=== PATIENT | male | born 1970 | race Two or more races ===

== ENCOUNTER → 2018-02-14 | Outpatient (CLI) | payer OTHER ==
[~2018-02-14] MED LIST: NO MEDS PER PT
== END | disposition home or self-care (01) ==
LOC: RAD 14:29
PROVIDERS: ATTEND Family Medicine
DX: R10.9 Unspecified abdominal pain (principal)
CPT/HCPCS: 76700

== ENCOUNTER → 2018-03-18 | Outpatient (CLI) | payer OTHER | END | disposition home or self-care (01) | LOC: RAD 09:34 | PROVIDERS: ATTEND Family Medicine | DX: R10.9 Unspecified abdominal pain (principal) | CPT/HCPCS: 78227; A9537 ==

== ENCOUNTER → 2018-05-10 | Outpatient (CLI) | payer OTHER ==
[~2018-05-10] MED LIST changes: +CHOL500045 PO; +DEXAMETHASONE 4 MG/ML, 1ML ONE; +ESOM40CA PO; +FENTANYL PF 100 MCG/2ML ONE; +FISH OIL PO; +GREEN TEA EXTRACT PO; +KETOROLAC 30 MG/1 ML ONE; +MIDAZOLAM 1 MG/ML, 2ML ONE; +MULT-658 PO; +OMNIPAQUE 350 MG/ML, 100ML BOTTLE ONE; +ONDANSETRON 2MG/ML, 2ML ONE; +PROPOFOL 10 MG/ML, 20ML ONE; +SUCCINYLCHOLINE 20 MG/ML, 10ML ONE; +VITAMIN C PO
== END | disposition home or self-care (01) ==
LOC: RAD 14:22
PROVIDERS: ATTEND Internal Medicine
DX: I81 Portal vein thrombosis (principal); K25.4 Chronic or unspecified gastric ulcer with hemorrhage
CPT/HCPCS: 74177; Q9967

== ENCOUNTER 2018-05-14 10:08 | Day surgery (SDC) | payer OTHER ==
[~2018-05-14] VITALS: Ht 170.2 cm; Wt 83.1 kg
[~2018-05-14 10:08] MED LIST changes: -CHOL500045 PO; -DEXAMETHASONE 4 MG/ML, 1ML ONE; -ESOM40CA PO; -FENTANYL PF 100 MCG/2ML ONE; -FISH OIL PO; -GREEN TEA EXTRACT PO; -KETOROLAC 30 MG/1 ML ONE; -MIDAZOLAM 1 MG/ML, 2ML ONE; -MULT-658 PO; -OMNIPAQUE 350 MG/ML, 100ML BOTTLE ONE; -ONDANSETRON 2MG/ML, 2ML ONE; -PROPOFOL 10 MG/ML, 20ML ONE; -SUCCINYLCHOLINE 20 MG/ML, 10ML ONE; -VITAMIN C PO
[2018-05-14] MEDS ORDERED: LACTATED RINGERS 1,000 ML IV SCH (10:35)
[2018-05-14] MEDS ORDERED: ESOM40CA PO (10:39)
[2018-05-14] MEDS ORDERED: CHOL500045 PO (10:39)
[2018-05-14] MEDS ORDERED: GREEN TEA EXTRACT PO (10:39)
[2018-05-14] MEDS ORDERED: FISH OIL PO (10:39)
[2018-05-14] MEDS ORDERED: MULT-658 PO (10:39)
[2018-05-14] MEDS ORDERED: VITAMIN C PO (10:39)
[2018-05-14 10:43] VITALS: BP 132/87
[2018-05-14] MEDS ORDERED: PHENYLEPHRINE 10 MG/ML ONE (11:16)
[2018-05-14] MEDS ORDERED: KETOROLAC 30 MG/1 ML ONE (11:16)
[2018-05-14] MEDS ORDERED: SUCCINYLCHOLINE 20 MG/ML, 10ML ONE (11:16)
[2018-05-14] MEDS ORDERED: DEXAMETHASONE 4 MG/ML, 1ML ONE (11:16)
[2018-05-14] MEDS ORDERED: ONDANSETRON 2MG/ML, 2ML ONE (11:16)
[2018-05-14] MEDS ORDERED: LORazepam 2 MG/ML, 1ML IVPush PRN (11:30)
[2018-05-14] MEDS ORDERED: ACETAMINOPHEN 325 MG TABLET PO PRN (11:30)
[2018-05-14] MEDS ORDERED: OXYcodone 5 MG/5 ML ORAL.SOL UDC PO PRN (11:30)
[2018-05-14] MEDS ORDERED: HALOPERIDOL 5 MG/ML IV PRN (11:30)
[2018-05-14] MEDS ORDERED: HYDROmorphone 2 MG/ML, 1ML IVPush PRN (11:30)
[2018-05-14] MEDS ORDERED: hydrALAzine 20 MG/ML, 1ML IV PRN (11:30)
[2018-05-14] MEDS ORDERED: LABETALOL 5MG/ML, 20ML IV PRN (11:30)
[2018-05-14] MEDS ORDERED: PROMETHAZINE 25 MG/ML, 1ML IV PRN (11:30)
[2018-05-14] MEDS ORDERED: MEPERIDINE/PF 25MG/0.5ML IVPush PRN (11:30)
[2018-05-14] MEDS ORDERED: FENTANYL PF 100 MCG/2ML IV PRN (11:30)
== END 2018-05-14 13:40 | disposition home or self-care (01) ==
LOC: OUT 10:08
PROVIDERS: ATTEND Internal Medicine
DX: C16.9 Malignant neoplasm of stomach, unspecified (principal); R59.1 Generalized enlarged lymph nodes; K21.9 Gastro-esophageal reflux disease without esophagitis; Z98.890 Other specified postprocedural states; Z86.19 Personal history of other infectious and parasitic diseases
CPT/HCPCS: 43238; 88172; 88173; 88177; 88305; J0330; J1100; J1885; J2250; J2370; J2405; J2704; J3010

== ENCOUNTER → 2018-05-30 | Outpatient (CLI) | payer OTHER ==
[~2018-05-30] MED LIST changes: +CHOL500045 PO; +ESOM40CA PO; +FISH OIL PO; +GREEN TEA EXTRACT PO; +MULT-658 PO; +VITAMIN C PO
== END | disposition home or self-care (01) ==
LOC: PETCFH 07:43
PROVIDERS: ATTEND Internal Medicine
DX: C16.9 Malignant neoplasm of stomach, unspecified (principal); R60.0 Localized edema
CPT/HCPCS: 78815; A9552

== ENCOUNTER 2018-06-19 11:58 | Day surgery (SDC) | payer OTHER ==
[~2018-06-19] VITALS: Ht 170.2 cm; Wt 82.4 kg
[2018-06-19 12:38] VITALS: BP 121/82
[2018-06-19] MEDS ORDERED: CEFAZOLIN PMX 1GM/50ML 50 ML ONE (12:46)
[2018-06-19] MEDS ORDERED: SODIUM CHLORIDE 0.9% 1,000 ML IV SCH (13:00)
[2018-06-19] MEDS ORDERED: CEFAZOLIN 1,000 MG in SODIUM CHLORIDE 0.9% 50 ML IV SCH (13:00)
[2018-06-19] MEDS ORDERED: CEFAZOLIN PMX 1GM/50ML 50 ML IV ONE (13:30)
[2018-06-19] MEDS ORDERED: NALOXONE 1 MG/ML, 2ML ONE (14:04)
[2018-06-19] MEDS ORDERED: FENTANYL PF 100 MCG/2ML ONE ×2 (14:04)
[2018-06-19] MEDS ORDERED: FLUMAZENIL 0.1 MG/1 ML, 5ML ONE (14:04)
[2018-06-19] MEDS ORDERED: MIDAZOLAM 1 MG/ML, 5ML ONE (14:04)
[2018-06-19] MEDS ORDERED: LIDOCAINE-MPF 1%, 5ML ONE (14:12)
== END 2018-06-19 16:30 | disposition home or self-care (01) ==
LOC: RAD 11:58 → OUT 16:30
PROVIDERS: ATTEND Internal Medicine Hematology & Oncology
DX: Z45.2 Encounter for adjustment and management of vascular access device (principal); C16.9 Malignant neoplasm of stomach, unspecified; Z98.890 Other specified postprocedural states
CPT/HCPCS: 36561; 76937; 77001; 99156; 99157; C1788; C1894; J0690; J1642; J2250; J3010; J7030; J2310

== ENCOUNTER → 2018-08-12 | Outpatient (CLI) | payer OTHER ==
[~2018-08-12] MED LIST changes: +OMNIPAQUE 350 MG/ML, 100ML BOTTLE ONE
== END | disposition home or self-care (01) ==
LOC: RAD 13:19
PROVIDERS: ATTEND Internal Medicine Hematology & Oncology
DX: C16.9 Malignant neoplasm of stomach, unspecified (principal)
CPT/HCPCS: 71260; 74160; Q9967

== ENCOUNTER → 2018-09-17 | Outpatient (CLI) | payer OTHER ==
[~2018-09-17] MED LIST changes: +NONE PER PT; -OMNIPAQUE 350 MG/ML, 100ML BOTTLE ONE
[2018-09-17 13:54] LABS: BASOPHILS # (AUTO) 0.02 x10^3/uL (0-0.1); BASOPHILS % (AUTO) 1 % (0-1); EOSINOPHILS # (AUTO) 0.15 x10^3/uL (0-0.4); EOSINOPHILS % (AUTO) 4 % (1-7); LYMPHOCYTES # (AUTO) 1.52 x10^3/uL (1-3.4); LYMPHOCYTES % (AUTO) 41 % (22-44); MD NO; MEAN CORPUSCULAR HEMOGLOBIN 28.2 pg (27.5-34.5); MEAN CORPUSCULAR HGB CONC 33.2 g/dL (33.2-36.2); MEAN CORPUSCULAR VOLUME 85.1 fL (81-97); MEAN PLATELET VOLUME 8.4 fL (7.4-10.4); MONOCYTES # (AUTO) 0.27 x10^3/uL (0.2-0.8); MONOCYTES % (AUTO) 7 % (2-9); NEUTROPHILS # (AUTO) 1.79 x10^3/uL (1.8-6.8); NEUTROPHILS % (AUTO) 48 % (42-75); PLATELET COUNT 232 x10^3/uL (130-400); RED BLOOD COUNT 4.51 x10^6/uL (4.38-5.82); RED CELL DISTRIBUTION WIDTH 17.8 % (9.4-14.8)
[2018-09-17 14:05] LABS: ALANINE AMINOTRANSFERASE 33 U/L (12-78); ALBUMIN 3.7 g/dL (3.4-5.0); ANION GAP 6 mmol/L (5-15); CALCIUM 8.4 mg/dL (8.5-10.1); CHLORIDE 107 mmol/L (98-107); CREATININE 1.03 mg/dL (0.7-1.3)
[2018-09-17 14:07] LABS: ALKALINE PHOSPHATASE 47 U/L (45-117); BILIRUBIN,TOTAL 0.4 mg/dL (0.2-1.0)
== END | disposition home or self-care (01) ==
LOC: STAR 12:58
PROVIDERS: ATTEND Thoracic Surgery (Cardiothoracic Vascular Surgery)
DX: Z01.818 Encounter for other preprocedural examination (principal)
CPT/HCPCS: 36415; 80053; 85025; 93005

== ENCOUNTER 2018-09-25 05:58 | Inpatient (IN) | payer OTHER ==
[~2018-09-25] VITALS: Ht 170.2 cm; Wt 89.0 kg
[2018-09-25] MEDS ORDERED: LACTATED RINGERS 1,000 ML IV SCH (06:39)
[2018-09-25] MEDS ORDERED: OxyconTIN ER 10 MG TAB.ER ONE (07:08)
[2018-09-25] MEDS ORDERED: SCOPOLAMINE PATCH, 1.5MG PATCH.TD72 TD ONE ×2 (07:08→10:00)
[2018-09-25] MEDS ORDERED: GABAPENTIN 300 MG CAPSULE ONE (07:08)
[2018-09-25] MEDS ORDERED: BUPIVACAINE/EPI 0.5% 1:200K ONE (07:12)
[2018-09-25] MEDS ORDERED: MIDAZOLAM 1 MG/ML, 2ML ONE ×2 (07:19→07:30)
[2018-09-25] MEDS ORDERED: ROCURONIUM 10MG/ML,5ML ONE (07:20)
[2018-09-25] MEDS ORDERED: FENTANYL PF 250 MCG/5ML ONE (07:20)
[2018-09-25] MEDS ORDERED: PHENYLEPHRINE 10 MG/ML ONE (07:22)
[2018-09-25] MEDS ORDERED: CEFOTETAN 2 GM ONE (07:32)
[2018-09-25] MEDS ORDERED: MEPERIDINE/PF 100 MG/ML ONE (08:20)
[2018-09-25] MEDS ORDERED: HALOPERIDOL 5 MG/ML IV PRN (08:30)
[2018-09-25] MEDS ORDERED: FENTANYL PF 100 MCG/2ML IV PRN (08:30)
[2018-09-25] MEDS ORDERED: DIAZEPAM 5 MG/ML, 2ML IVPush PRN (08:30)
[2018-09-25] MEDS ORDERED: MEPERIDINE/PF 25MG/0.5ML IVPush PRN (08:30)
[2018-09-25] MEDS ORDERED: PROMETHAZINE 25 MG/ML, 1ML IV PRN (08:30)
[2018-09-25] MEDS ORDERED: HYDROmorphone 2 MG/ML, 1ML IVPush PRN (08:30)
[2018-09-25] MEDS ORDERED: OXYcodone 5 MG/5 ML ORAL.SOL UDC PO PRN (08:30)
[2018-09-25] MEDS ORDERED: hydrALAzine 20 MG/ML, 1ML IV PRN ×2 (08:30→10:00)
[2018-09-25] MEDS ORDERED: LIDOCAINE-MPF 2% ,5ML ONE (08:36)
[2018-09-25] MEDS ORDERED: PROPOFOL 10 MG/ML, 20ML ONE (08:36)
[2018-09-25] MEDS ORDERED: ONDANSETRON 2MG/ML, 2ML ONE (08:37)
[2018-09-25] MEDS ORDERED: DEXAMETHASONE 4 MG/ML, 1ML ONE (08:37)
[2018-09-25] MEDS ORDERED: SUGAMMADEX 200 MG/2 ML IVPush ONE (09:36)
[2018-09-25] MEDS ORDERED: LORazepam 2 MG/ML, 1ML IV PRN (10:00)
[2018-09-25] MEDS ORDERED: PROMETHAZINE 25 MG/ML, 1ML IM PRN (10:00)
[2018-09-25] MEDS ORDERED: ENALAPRILAT 1.25 MG/ML, 2ML IV PRN (10:00)
[2018-09-25] MEDS ORDERED: PROMETHAZINE 12.5 MG SUPP PR PRN (10:00)
[2018-09-25] MEDS ORDERED: ACETAMINOPHEN 650 MG SUPP PR PRN (10:00)
[2018-09-25] MEDS: KETOROLAC 30 MG/1 ML IV PRN (11:12)
[2018-09-25] MEDS ORDERED: KETOROLAC 30 MG/1 ML ONE (11:13)
[2018-09-25] MEDS ORDERED: FENTANYL PF 100 MCG/2ML ONE (11:13)
[2018-09-25] MEDS ORDERED: hydrALAzine 20 MG/ML, 1ML ONE (11:21)
[2018-09-25 12:00] VITALS: BP 124/90
[2018-09-25] MEDS: FAMOTIDINE 20 MG/2 ML IV SCH (12:55)
[2018-09-25 13:00] VITALS: BP 124/86
[2018-09-25] MEDS: CEFOTETAN PMX 2GM/50ML 50 ML IVPB SCH (16:08)
[2018-09-25] MEDS: LACTATED RINGERS 1,000 ML IV SCH (20:29)
[2018-09-25 20:56] VITALS: BP 116/73
[2018-09-26 00:33] VITALS: BP 118/78
[2018-09-26] MEDS: FAMOTIDINE 20 MG/2 ML IV SCH ×2 (01:17→12:17)
[2018-09-26] MEDS: morphine SULFATE 10 MG/ML, 1ML IV PRN ×2 (01:17→05:15)
[2018-09-26 04:15] VITALS: BP 111/66
[2018-09-26] MEDS: LACTATED RINGERS 1,000 ML IV SCH ×3 (04:23→20:36)
[2018-09-26] MEDS: CEFOTETAN PMX 2GM/50ML 50 ML IVPB SCH ×2 (04:23→16:16)
[2018-09-26] MEDS: KETOROLAC 30 MG/1 ML IV PRN ×2 (05:15→16:16)
[2018-09-26] MEDS: ONDANSETRON 2MG/ML, 2ML IVPush PRN ×3 (05:15→16:23)
[2018-09-26 06:11] LABS: BASOPHILS # (AUTO) 0.02 x10^3/uL (0-0.1); BASOPHILS % (AUTO) 0 % (0-1); EOSINOPHILS % (AUTO) 0 % (1-7); LYMPHOCYTES # (AUTO) 0.95 x10^3/uL (1-3.4); LYMPHOCYTES % (AUTO) 14 % (22-44); MD NO; MEAN CORPUSCULAR HEMOGLOBIN 28.1 pg (27.5-34.5); MEAN CORPUSCULAR HGB CONC 32.6 g/dL (33.2-36.2); MEAN CORPUSCULAR VOLUME 85.9 fL (81-97); MEAN PLATELET VOLUME 8.5 fL (7.4-10.4); MONOCYTES # (AUTO) 0.44 x10^3/uL (0.2-0.8); MONOCYTES % (AUTO) 6 % (2-9); NEUTROPHILS # (AUTO) 5.44 x10^3/uL (1.8-6.8); NEUTROPHILS % (AUTO) 80 % (42-75); PLATELET COUNT 211 x10^3/uL (130-400); RED BLOOD COUNT 4.22 x10^6/uL (4.38-5.82)
[2018-09-26 06:12] LABS: ANION GAP 5 mmol/L (5-15); CALCIUM 8.3 mg/dL (8.5-10.1); CHLORIDE 107 mmol/L (98-107); CREATININE 1.45 mg/dL (0.7-1.3)
[2018-09-26 07:37] VITALS: BP 113/67
[2018-09-26] MEDS: ENOXAPARIN 40 MG/0.4 ML SQ SCH (08:22)
[2018-09-26 14:03] VITALS: BP 131/78
[2018-09-26 19:40] VITALS: BP 128/68
[2018-09-27] MEDS: FAMOTIDINE 20 MG/2 ML IV SCH ×2 (01:13→13:30)
[2018-09-27] MEDS: KETOROLAC 30 MG/1 ML IV PRN ×4 (01:15→20:16)
[2018-09-27 02:51] VITALS: BP 122/72
[2018-09-27] MEDS: LACTATED RINGERS 1,000 ML IV SCH ×3 (04:09→20:16)
[2018-09-27] MEDS: CEFOTETAN PMX 2GM/50ML 50 ML IVPB SCH (04:09)
[2018-09-27 06:50] VITALS: BP 126/75
[2018-09-27] MEDS: ONDANSETRON 2MG/ML, 2ML IVPush PRN ×2 (08:52→20:16)
[2018-09-27] MEDS: ENOXAPARIN 40 MG/0.4 ML SQ SCH (08:53)
[2018-09-27 19:03] VITALS: BP 122/79
[2018-09-28] MEDS: FAMOTIDINE 20 MG/2 ML IV SCH ×2 (01:00→13:52)
[2018-09-28 03:38] VITALS: BP 125/80
[2018-09-28] MEDS: LACTATED RINGERS 1,000 ML IV SCH ×3 (04:06→20:00)
[2018-09-28 07:51] VITALS: BP 129/78
[2018-09-28] MEDS: ENOXAPARIN 40 MG/0.4 ML SQ SCH (09:57)
[2018-09-28] MEDS: KETOROLAC 30 MG/1 ML IV PRN (09:57)
[2018-09-28 13:59] VITALS: BP 124/74
[2018-09-28 20:17] VITALS: BP 130/84
[2018-09-28] MEDS: OXYcodone/APAP 5/325MG TABLET PO PRN (21:17)
[2018-09-29] MEDS: FAMOTIDINE 20 MG/2 ML IV SCH ×2 (01:32→12:49)
[2018-09-29 01:34] VITALS: BP 117/73
[2018-09-29] MEDS: LACTATED RINGERS 1,000 ML IV SCH ×3 (02:42→20:00)
[2018-09-29 06:48] VITALS: BP 124/77
[2018-09-29] MEDS: ENOXAPARIN 40 MG/0.4 ML SQ SCH (09:12)
[2018-09-29 12:32] VITALS: BP 126/82
[2018-09-29 18:43] VITALS: BP 123/80
[2018-09-29] MEDS: OXYcodone/APAP 5/325MG TABLET PO PRN (20:30)
[2018-09-30 03:55] VITALS: BP 116/70
[2018-09-30] MEDS: LACTATED RINGERS 1,000 ML IV SCH ×2 (04:00→12:04)
[2018-09-30] MEDS: FAMOTIDINE 20 MG/2 ML IV SCH (06:05)
[2018-09-30 07:06] VITALS: BP 121/76
[2018-09-30] MEDS: ENOXAPARIN 40 MG/0.4 ML SQ SCH (08:00)
[2018-09-30 13:28] VITALS: BP 130/78
== END 2018-09-30 14:49 | disposition home or self-care (01) | DRG 328 ==
LOC: ORIP 05:58 → 4NOR 11:52
PROVIDERS: ADMIT Thoracic Surgery (Cardiothoracic Vascular Surgery); ATTEND Thoracic Surgery (Cardiothoracic Vascular Surgery)
PROC: 0DB64ZZ Excision of Stomach, Percutaneous Endoscopic Approach (ICD-10-PCS; principal; 2018-09-25 07:30)
PROC: 0DX64Z5 Transfer Stomach to Esophagus, Percutaneous Endoscopic Approach (ICD-10-PCS; 2018-09-25 07:30)
DX: C16.9 Malignant neoplasm of stomach, unspecified (principal)
CPT/HCPCS: 36415; 74241; 80048; 85025; 86850; 86900; 88305; 88309; 88331; G0378; J1100; J1650; J1885; J2250; J2405; J2704; J3010; J0360; J2175; J2270; J2370; J3490; J7120